=== PATIENT | female | born 1995 ===

== ENCOUNTER 2019-12-02 12:29 | Emergency (ER) | payer SELFPAY ==
[2019-12-02 13:04] VITALS: BP 120/73; PULSE 90
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
[2019-12-02] MEDS ORDERED: Acetaminophen/HYDROcodone 325-5 MG Tab PO ONE (13:48)
--- NOTE | 2019-12-02 14:34 | CR ---
Right first toe: Four views of the right first toe were obtained. Fracture is identified within the corner aspect of the distal proximal phalanx of the right first toe. Articular extension is seen. Alignment remains close to anatomic. No additional bony abnormality is seen. Impression: 1. Proximal phalanx fracture as described above. Diagnostic code #3 Study was dictated in Mountain Standard Time
== END 2019-12-02 14:05 | disposition home or self-care (01) ==
LOC: JD.ED 12:29
DX: S92.424A Nondisplaced fracture of distal phalanx of right great toe, initial encounter for closed fracture (principal); W22.8XXA Striking against or struck by other objects, initial encounter
CPT/HCPCS: 73660; 99283; A9270

== ENCOUNTER 2019-12-30 02:23 | Emergency (ER) | payer SELFPAY ==
[2019-12-30 02:40] VITALS: BP 137/94; PULSE 108
[2019-12-30] MEDS ORDERED: LORazepam 1 MG Tab PO ONE (03:02)
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
== END 2019-12-30 09:09 | disposition home or self-care (01) ==
LOC: JD.ED 02:23 → EEVIPCON 02:23 → JD.ED 09:09
DX: O99.341 Other mental disorders complicating pregnancy, first trimester (principal); F51.04 Psychophysiologic insomnia; O99.331 Smoking (tobacco) complicating pregnancy, first trimester; F17.210 Nicotine dependence, cigarettes, uncomplicated
CPT/HCPCS: 36415; 84702; 85025; 99285; A9270; 99284